=== PATIENT | female | born 1980 | race African-American/Black ===

== ENCOUNTER 2025-10-10 14:18 | Outpatient (AMB) | payer OTHER, SELFPAY ==
[2025-10-10 14:20] VITALS: BMI 22.9
--- NOTE | 2025-10-10 14:20 | A.PHYSOV ---
Vital Signs 10/10/25 14:20 Height 5 ft 2 in Weight 125 lb BMI 22.9 Intake Visit Reasons: F/U after injection 09/12/2025 Intake Note: Patient is a 45 year old female in office today for follow up after C7-T1 interlaminar epidural injection on 09/12/25. 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 The patient has a history of lumbar surgeries and failed low back syndrome, managed with repeated caudal epidural injections, the latest on April 25, 2025. The patient underwent a C7-T1 epidural injection on September 04, 2025. The patient experienced a pain exacerbation after overactivity post-neck injection, leading to an emergency room visit where muscle relaxers were administered. She received prescription for cyclobenzaprine which helps her a great deal. Right now she is feeling much better. Her lower back pain started to get worse. She has been managed with coil injections in the past. She would like to schedule another procedure. Lower back pain is rated 8/10. Pain is reported primarily with standing. Cervical spine MRI showed moderate left foraminal stenosis at C6-7 and mild to moderate bilateral neural foraminal stenosis at C5-6. The patient reports improvement after receiving cyclobenzaprine, which was effective in alleviating symptoms. Pain Description - Pain location: Lower back and lumbar region - Pain quality: Fluctuating intensity, exacerbated by overactivity - Relieving factors: Cyclobenzaprine administration Results - Imaging: Cervical spine MRI on February 06, 2025, showed moderate left foraminal stenosis at C6-7 and mild to moderate bilateral neural foraminal stenosis at C5-6 [facility] Medical History (Updated 10/10/25 @ 15:51 by Fuentes Moses DO) Cervical spinal stenosis Cervical radiculitis Spinal stenosis, lumbar region with neurogenic claudication Lumbar radiculitis Surgical History (Updated 10/06/25 @ 15:28 by Juliann Frazier MA) H/O tubal ligation History of appendectomy H/O unilateral oophorectomy History of cancer surgery History of back surgery Social History (Updated 10/10/25 @ 14:21 by Juliann Frazier MA) Household Members: Spouse Alcohol intake: current Alcohol intake frequency: holidays/special occasions only Patient Tobacco Use Status: Current everyday Tobacco user Substance Use Type: Marijuana Current occupational status: unemployed and disabled Review of Systems Narrative Review of Systems - Musculoskeletal: Reports chronic lower back pain and lumbar radiculitis, chronic neck pain and cervical radiculitis - Neurological: Denies new neurological deficits Denies change in bowel bladder habits, denies fever or chills, denies uncontrolled depression or suicidal ideation Physical Exam Exam Exam: Physical Exam Patient appears to be in no acute distress, appropriately conversant oriented. She was able to ambulates without antalgia. She was able to perform heel walk and toe walk. Normal cervical range of motion. Spurling maneuver was negative. Lhermitte's sign was negative. Lumbar extension was restricted. Dural tension signs were negative. SI provocative maneuvers were negative. Bilateral lumbar paraspinal tenderness and SI joint tenderness with palpation. Patient demonstrated no upper motor neuron signs. Neurological examination of upper and lower extremities was nonfocal. Vital Signs: BMI result Body Mass Index 22.9 Assessment & Plan Assessment & Plan (1) Lumbar radiculitis: Code(s): M54.16 - Radiculopathy, lumbar region Category: Medical (2) Cervical radiculitis: Code(s): M54.12 - Radiculopathy, cervical region Category: Medical (3) Cervical spinal stenosis: Code(s): M48.02 - Spinal stenosis, cervical region Category: Medical (4) Spinal stenosis, lumbar region with neurogenic claudication: Code(s): M48.062 - Spinal stenosis, lumbar region with neurogenic claudication Category: Medical Plan Pain Management - Affect: Pain impacts daily activities, leading to emergency room visit after overactivity - Analgesia: Cyclobenzaprine prescribed, effective in symptom relief - Adverse Effects: None reported from cyclobenzaprine - Activities of Daily Living: Pain interferes with household activities - Aberrant Drug Related Behaviors: None reported Plan Patient was informed and verbally consented to the use of an ambient scribe for clinic note documentation during this visit. 1. Chronic Lower Back Pain The patient will continue with pain management strategies, including the use of cyclobenzaprine for muscle relaxation. A caudal epidural injection is planned to be scheduled, as the last one was performed in April 2025. 2. Lumbar Radiculitis The patient will be monitored for any changes in symptoms and will continue with the current pain management regimen. 3. Patient will be provided with prescription for a heating pad to use at home as needed Discussion Notes I discussed with the patient the plan to continue cyclobenzaprine for muscle relaxation and the scheduling of a caudal epidural injection. We also talked about the importance of avoiding overactivity post-procedure to prevent exacerbation of symptoms. The patient was informed about the need for pre-certification for the procedure due to insurance requirements. Risks and benefits of the procedure were discussed with the patient. Potential alternative measures were also discussed. Patient understands that the procedure is completely elective. Potential side effects associated with injectable medications were discussed. All questions were answered to the patient's satisfaction. Patient Instructions - Continue taking cyclobenzaprine as prescribed, preferably at night. - Avoid overactivity, especially after procedures, to prevent exacerbation of symptoms. - Await scheduling call for the caudal epidural injection. - Contact the office if symptoms worsen or if there are any concerns. Orders: Referrals Physiatry Procedure Notification M54.16 - Radiculopathy, lumbar region Medications: New heating pads (Comfort-Heal Heating Pad) As directed 1 ea 0RF cyclobenzaprine 5 mg PO TID PRN 90 tabs 0RF muscle spasm M54.16 - Radiculopathy, lumbar region Coding Level of Care Code Tele Est Pt Level 4 (16084) Complex visit Add On G2211 Diagnoses Lumbar radiculitis M54.16 Cervical radiculitis M54.12 Cervical spinal stenosis M48.02 Spinal stenosis, lumbar region with neurogenic claudication M48.062
--- OUTSIDE RECORDS SUMMARY | 2025-10-10 18:10 | XMS_ITS | Encounter Summary ---
Author Organization [facility] Address [address] [place] [address] Encounters * CPT with Medical instED at [facility] on 2025-09-20 { reasonForRequest : Pt reporting having a spinal injection by her neck last Thursday>notes she has been feeling a lot of pain since>stiff, pain going down her arm , patientReports : Dizziness with positional change , denies :[ Worst Headache of life , New onset of vision loss , Sudden onset -unilateral weakness/gait disturbance , Fall with head strike and altered LOC , New onset of Slurred speech or difficulty finding words , Sudden Mental status changes , Head pain with fever chills and neck pain , Seizure activity , Head pain not relieved by medication greater than 8 hours , Head pain greater than 8 hours -unrelated to falls or injury , Head pain with nausea vomiting , Sensitive to light ], chiefComplaints : Neck Pain , pmh : Osteoarthritis, Fibromyalgia, Chronic Back Pain, Chronic Pain, Anxiety Disorder, Depression ,&quot ;allergies : No Known Drug Allergies , otherAllergies : , p ainAssessment : , visitOutcome : , additionalComments": 45 y.o female complains of Neck Pain\nPatient self referring\npatient had a cortisone inject ion last Thursday in her neck secondary chronic neck and shoulder pain. \nPatient states it was hurting at first but states pain has become increasingly worse. Patient feels she over did it this past week as she was instructed to not do any heavy lifting. She has been lifting up grandson who is 12 pounds, laundry, washing dishes and thinks she has aggravated the area. \nIbuprofen 800mg and Ice packs and warm showers- relief did not last long and pain is right back to the same level \nendorses headaches, that goes up the back of her neck, no vision changes.\ndenies any fever, some chills overnight. denies any nausea or vomiting. \ndenies any kidney issues and no blood thinners\nrequesting insted visit. \nI provided information on the mobile health provider response time and advised the patient and/or caregiver to monitor reported signs and symptoms. I discussed the warning signs of when to seek emergency care. } InstED visit for a female patient with complaint of neck pain following injection for arthritis andexertion. Pt reports history of osteoarthritis with periodic neck injections believed to be cortisone and most recently received injection 8 days ago. 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 Pain has been going on for 6 days and getting worse. Pt has been taking 800 mg ibuprofen q8h without improvement. Pt called pain management provider and was not able to be fit in to schedule and had been advised she may need ED. Pt presents in some obvious discomfort with obvious loss of ROM of neck and upper body. V/S taken as listed with hypertension noted. Neck palpated with obvious tenderness noted bilaterally in trapezius as well as muscles on the posterior of the neck beneath occiput. Consulted with [facility] who advised follow up with PCP and pain management in addition to applying heat, and topical lidocaine. Discussedwith pt urgent care vs ED for her concerns presently and pt decided on ED with plan to go by private vehicle. ORAL_MEDICATION, EKG, POC_BLOODWORK Written by Medical instED on 2025-09-20
--- OUTSIDE RECORDS SUMMARY | 2025-10-10 18:10 | XMS_ITS | Continuity of Care Document ---
Author Organization [employer] [facility], [facility] Address [address] [place] [address] Care Team Providers Care Interim Controller Name Role Phone HIM CCA OTHER Assessment No assessment recorded. Plan of Treatment Reminders Order Date Submit Date Provider Last Modified By Organization Details Last Modified Time Details Appointments None record ed. Lab None record ed. Referral None record ed. Procedures None record ed. Surgeries None record ed. Imaging None record ed. Medication Orders None record ed. Patient TargetsNo targets recorded. Patient InstructionsNo instructions recorded. Reason for Referral None Reported. Medical Equipment None Reported. Allergies Allergen ID Allergen Name Allergen Category Reaction Reaction Severity Criticality Documentation Date Start Date Code Code System Note Provider Name and Address Organization Details Recorded Time latex environme nt,medica tion Not available Not available Not available 09/20/20252016 52301 91 RxNorm unrec ogniz ed react ion (text : Rash/ Carter titis , code: 95482 8007) (from [facility]) Not Available [facility] - External Data Service - prod 13:33:05 Medications Name Sig Start Date Stop Date Status Note LastModified by Organization Details LastModified Time ibuprofen 800 mg tablet TAKE 1 BY MOUTH 3 TIMES A DAY NEEDED active Not Available Not Available No t Available metronidazo le 500 mg tablet TAKE 1 TABLET BY MOUTH EVERY 12 HOURS FOR 7 DAYS NO ALCOHOL, TAKE WITH FOOD FOR ABDOMINAL DISCOMFOR T 09/20 completed Not Available Not Available Not Available valacyclovi r 500 mg tablet TAKE 1 TABLET BY MOUTH 2 TIMES A DAY FOR 3 DAYS NEEDED FOR VAGINAL HERPES active Not Available Not Available No t Available omeprazole 20 mg capsule,del ayed release TAKE 1 CAPSULE BY MOUTH EVERY DAY active Not Available Not Available No t Available lorazepam 1 mg tablet TAKE 1 TAB, 1 HOUR PRIOR TO PROCDURE, MAY REPEAT X 1 active Not Available Not Available No t Available albuterol sulfate HFA 90 mcg/actuati on aerosol inhaler INHALE 2 PUFFS INTO THE LUNGS EVERY 6 HOURS NEEDED FOR COUGH OR WHEEZING. active Not Available Not Available No t Available loratadine 10 mg tablet TAKE 1 TABLET BY MOUTH EVERY DAY active Not Available Not Available No t Available duloxetine 60 mg capsule,del ayed release TAKE 1 CAPSULE BY MOUTH EVERY DAY active Not Available Not Available No t Available Flowflex COVID-19 Antigen Home Test kit DIRECTED active Not Available Not Available No t Available Vitals Date Recorded Body height Body weight Respiratory rate Oxygen saturation Heart rate Systolic And Diastolic Systolic And Diastolic Provider Name and Address Organization Details Last Updated DateTime 5 157.48 cm 01862 g 16 /min 100 % 64 /min 178/111 mm[Hg] 177/131 mm[Hg] Not Available [facility] - production 5 13:38:52 Social History None recorded. Functional Status None recorded. Mental Status None recorded. Family History Nothing Reported. Medical History No medical history recorded. Gynecological HistoryNo gynecological history recorded. Obstetrics History GPAL:G 0 P 0 0 0 0 Past Encounters Encounter ID Performer Location Encounter Start Date Encounter Closed Date Diagnosis/Indication Diagnosis SNOMED-CT Code Diagnosis ICD10 Code Diagnosis IMO Codes Diagnosis Note [id number] Isadora Hampton MD [facility] ED Medical [address] [address] 09/20/2025 13:32:43 09/20/2025 16:32:25 Neck pain [id number] M54.2 07570 Evaluation in the field was performed by my mine laborer colleague, as noted above, I provided real-time direction and supervisio n for this visit.This is a 45yo F PMHx chronic cervical radiculiti s s/p epidural spinal injection 8d ago, lumbago with L5/S1 radiculopa thy, tobacco use disorder who is p/w ongoing neck pain. Reports she picked up her grandson two days after ANGELA and neck and shoulders started hurting worse. No direct trauma, no numbness/t ingling, no fevers, no skin erythema. Taking ibuprofen 800 mg q8hr x weeks. No known hx kidney disease.Al so noted to have elevated BP iso pain 06/25, denies hx prior elevated BPs. VS: BP 171/111 b/l, rest wnlParamed ic exam: sig spasm of b/l trapezius, occipital spinal musclesPOC testing: none Impression : (1) neck pain 2/2 muscle spasm and (2) elevated BP w/o diagnosis HTNPlan: Pt elects ED eval as she feels she need emergent pain control, recommend full outpatient work up if elevated BPs persist including BMP in ED to r/o renal cause iso heavy NSAID use.Red flags reviewed, pt expressed understand ing For PCP: ensure adequate work up for elevated BP if remains elevated c/w essential HTN We discussed the diagnostic uncertaint y of home visits and the risk associated with this. In this case, the patient and I felt this to be an acceptable and reasonable amount of risk given the benefit of avoiding an ED visit. We discussed the need to seek care urgently/e mergently in the setting of any new or worsening serious symptoms, shortness of breath, cough, chest pain, fever. Health Concerns Section Related Observation LastModified by Organization Detai ls LastModified Time None Recorded Concern Status LastModified by Organization Details LastModified Time None Recorded Payers Encounter Date Sequence Insurance Name Policy Number Policy Delgado Covered Member ID Delgado Member ID Guarantor Name 09/20/2025 1 [facility] - DOS ON OR AFTER 2023 - DUAL ELIGIBLE - JAIL OPTIONS AND ONE CARE (MEDICARE REPLACEMENT/ADV ANTAGE - HMO) Joycelyn Flores [id number] Joycelyn Flores Notes Date Note Type Note Provider Name and Address Organization Details Recorded Time 09/20/2025 text/html CRC Nurse Triage Notes (Shirin Barnes): Reason For Request: Pt reporting having a spinal injection by her neck last Thursday>notes she has been feeling a lot of pain since>stiff, pain going down her arm Patient Reports: Dizziness with positional change Denies: Worst Headache of life New onset of vision loss Sudden onset -unilateral weakness/gait disturbance Fall with head strike and altered LOC New onset of Slurred speech or difficulty finding words Sudden Mental status changes Head pain with fever chills and neck pain Seizure activity Head pain not relieved by medication greater than 8 hours Head pain greater than 8 hours -unrelated to falls or injury Head pain with nausea vomiting Sensitive to light Chief Complaints: Neck Pain PMH: Osteoarthritis, Fibromyalgia, Chronic Back Pain, Chronic Pain, Anxiety Disorder, Depression PMH Reviewed at 09/20/2025 - Allergies Reviewed at 09/20/2025 - : Comments: 45 y.o female complains of Neck Pain Patient self referring patient had a cortisone injection last Thursday in her neck secondary chronic neck and shoulder pain. Patient states it was hurting at first but states pain has become increasingly worse. Patient feels she over did it this past week as she was instructed to not do any heavy lifting. She has been lifting up grandson who is 12 pounds, laundry, washing dishes and thinks she has aggravated the area. Ibuprofen 800mg and Ice packs and warm showers- relief did not last long and pain is right back to the same level endorses headaches, that goes up the back of her neck, no vision changes. denies any fever, some chills overnight. denies any nausea or vomiting. denies any kidney issues and no blood thinners requesting insted visit. I provided information on the mobile health provider response time and advised the patient and/or caregiver to monitor reported signs and symptoms. I discussed the warning signs of when to seek emergency care. .................... .................... .................... .................... .................... .................... .................... . Last Repairer Helper Note From Sharan Peralta: InstED visit for a female patient with complaint of neck pain following injection for arthritis and exertion. Pt reports history of osteoarthritis with periodic neck injections believed to be cortisone and most recently received injection 8 days ago. 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 Pain has been going on for 6 [...] of the neck beneath occiput. Consulted with [facility] who advised follow up with PCP and pain management in addition to applying heat, and topical lidocaine. Discussed with pt urgent care vs ED for her concerns presently and pt decided on ED with plan to go by private vehicle. .................... .................... .................... .................... .................... .................... .................... . [facility] Consulted: Isadora Hampton .................... .................... .................... .................... .................... .................... .................... . Disposition: Fulfilled Isadora Hampton MD [address], [place], [address], [employer] 09/20/2025 16:15:13 OBGyn Episode No OBEpisode recorded.
--- OUTSIDE RECORDS SUMMARY | 2025-10-10 18:10 | XMS_ITS | Continuity of Care Document ---
Author Name [facility], Medical Address [address] [place] [address] Organization Unknown Address [address] [place] [address] Medications No known medications Problems No known problems
--- OUTSIDE RECORDS SUMMARY | 2025-10-10 18:10 | XMS_ITS | Data Portability ---
Author Organization [facility], [facility] Address [address] [place] [address] Care Team Providers Care Washer And Capper Machine Operator Name Role Phone HIM CCA OTHER Assessment [...] Not available Not available Not available 09/20/20252016 93147 91 RxNorm unrec ogniz ed react ion (text : Rash/ Tom[place] titis , code: [id number] 8007) (from [facility]) Not Available [facility] - External Data Service - prod 13:33:05 [...] Details Last Updated DateTime 5 157.48 cm 31298 g 16 /min 100 % 64 /min [...] ICD10 Code Diagnosis IMO Codes Diagnosis Note [id number] Isadora Hampton MD [facility] ED Medical [address] [phone] 09/20/2025 13:32:43 09/20/2025 16:32:25 Neck pain [id number] M54.2 [id number] Evaluation in the field was performed by my insurance underwriter sales colleague, as noted above, I provided real-time [...] by Organization Details LastModified Time None Recorded Advance Directives Directive None Recorded Payers Insurance Date Sequence Insurance Name Policy Number Policy Delgado Covered Member ID Delgado Member ID Guarantor Name 09/20/2025 1 [facility] - DOS ON OR AFTER 2023 - DUAL ELIGIBLE - [employer] OPTIONS AND ONE CARE (MEDICARE REPLACEMENT/ADV ANTAGE - HMO) Joycelyn Flores [id number] Joycelyn Flores Notes Date Note Type Note [...] 09/20/2025 - Allergies Reviewed at 09/20/2025 - Comments: 45 y.o female complains of Neck [...] .................... .................... .................... .................... .................... .................... . Stationary Fireman Note From Sharan Peralta: Inst[facility] visit for a female patient with complaint of neck pain following injection for arthritis and exertion. Pt reports history of osteoarthritis with periodic neck injections believed to be cortisone and most recently received injection 8 days ago. 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 Pain has been going on for 6 [...] of the neck beneath occiput. Consulted with [facility] [place] [facility] who advised follow up with PCP and pain management in addition to applying heat, and topical lidocaine. Discussed with pt urgent care vs ED for her concerns presently and pt decided on ED with plan to go by private vehicle. .................... .................... .................... .................... .................... .................... .................... . [facility] Consulted: Isadora Hampton .................... .................... .................... .................... .................... .................... .................... . Disposition: Fulfilled Isadora Hampton MD [address], [place], [address], [employer] 09/20/2025 16:15:13 OBGyn Episode No OBEpisode recorded.
--- OUTSIDE RECORDS SUMMARY | 2025-10-10 18:10 | XMS_ITS | Clinical Summary ---
Author Organization [facility] Address [address] [place] [address] Phone Care Team Providers Care Home Aid Name Role Phone Peg Michaud MD Primary Care Provider [phone] Allergies Active Allergy Reactions Criticality Noted Date Comments Cheese GI intolerance Low 03/04/2017 Chocolate Headache Low 03/04/2017 Latex Rash Low 03/04/2017 Medications inhalational spacing device inhaler 1 Each by Does not apply route as needed for Other (with inhalers). 05/07/20 23 Active acetaminophen (TYLENOL) 500 mg tablet Take 1 tablet (500 mg total) by mouth every 6 (six) hours if needed. 10/29/20 22 Active fluticasone propion-salmete roL (ADVAIR HFA) 115-21 mcg/actuation inhaler Inhale 2 Puffs into the lungs 2 times daily for 180 days. TAKE 2 PUFFS TWICE PER DAY. RINSE MOUTH AFTER EACH ADMINISTRATION TO AVOID FUNGAL INFECTION DO TO USE OF INHALED STEROID. 05/07/20 23 Active fluticasone propionate (FLONASE) 50 mcg/actuation nasal spray 2 sprays in each nostril daily 09/24/20 20 Active meclizine (ANTIVERT) 25 mg tablet Take 1 Tablet by mouth 3 times daily as needed (dizziness) for up to 10 days. 04/21/20 24 Active sulindac (CLINORIL) 150 mg tablet Take 1 Tablet by mouth 2 times daily as needed for Pain (Take with food.). 03/30/20 23 Active valACYclovir (VALTREX) 500 mg tablet Take 500 mg by mouth 3 times daily as needed. Active loratadine (CLARITIN) 10 mg tablet TAKE 1 TABLET BY MOUTH EVERY DAY 90 tablet 1 12/15/19 25 Active Ventolin HFA 90 mcg/actuation inhaler INHALE 2 PUFFS INTO THE LUNGS EVERY 6 HOURS NEEDED FOR COUGH OR WHEEZING. 18 each 3 03/21/20 25 Active omeprazole (PriLOSEC) [address] capsule TAKE 1 CAPSULE BY MOUTH EVERY DAY 90 capsule 1 06/08/20 25 Active DULoxetine (CYMBALTA) [address] capsule TAKE 1 CAPSULE BY MOUTH EVERY DAY 90 capsule 1 06/09/20 25 Active nicotine polacrilex (COMMIT) 4 mg lozengeIndicati ons:smoking cessation Dissolve 1 lozenge (4 mg total) in the mouth every 2 (two) hours if needed for smoking cessation. 90 lozenge 3 09/27/20 25 Active losartan (Cozaar) 50 mg tabletIndicatio ns:Hypertension , unspecified type Take 1 tablet (50 mg total) by mouth 1 (one) time each day. 30 tablet 3 09/27/20 25 Active albuterol HFA (Ventolin HFA) 90 mcg/actuation inhalerIndicati ons:Moderate persistent asthma, unspecified whether complicated Inhale 2 puffs by mouth every 4 (four) hours if needed for wheezing or shortness of breath. 8 g 5 09/27/20 25 026 Active cyclobenzaprine (FLEXERIL) 5 mg tabletIndicatio ns:Neck pain Take 1 tablet (5 mg total) by mouth 3 (three) times a day if needed for muscle spasms for up to 5 days. 15 tablet 09/20/20 25 025 Active Problems Problem Noted Date Diagnosed Date De Quervain's disease (radial styloid tenosynovi tis) 11/30/2024 Overview (11/30/2024): neos, s/p surgery Depression with anxiety 11/30/2024 Overview (11/30/2024): Used to follow with [facility] Lumba 11/30/2024 Overview (11/30/2024): Follows with pain management, will receive epidural spinal injections, MR lumbar from 03/2014 moderate right paramedia disc herniation, and arthropathy of L5-S1. [facility] s/p decompression and microdiscectomy for right radiculopathy post surgery MRI 03/2015 no further evidence of nerve root compression. She continued with symptoms post surgery and was found not to be a candidate for further surgery Multilevel degenerative disc disease 11/30/2024 Overview (11/30/2024): L 5 - S 1, T 11-12. Evaluated by neurology (? Fibromyalgia) they referred to rheumatology Macrocytic anemia 11/24/2019 Overview (11/30/2024): Have ordered Folate and B12 on 11/24/2019. Keratoconjunctivitis sicca 01/28/2018 Overview (11/30/2024): Referred to oral surgery for oral biopsy. ? Sjogrens Drug use 03/20/2017 Overview (11/30/2024): Utox +ve MJ and opiates LGSIL on Pap smear of cervix 03/20/2017 Overview (11/30/2024): Q 1 year pap smear, most recent 12/2018 GERD (gastroesophageal reflux disease) 7 Hyperlipidemia 03/18/2017 Vitamin D deficiency 03/18/2017 Failed back syndrome 02/11/2017 Overview (11/30/2024): L5-S1 decompression and microdiscectomy 02/2015, s/p PT, MRI 03/2014 with no nerve root compression or significant stenosis, follows with chronic pain (s/p epidural injections) Evaluated for possible spinal stimulation. Asthma, mild intermittent 10/16/2016 Dry eyes 07/17/2016 Encounters Date Type Department Care Team Description 10/02/2025 Telephone Internal Medicine - [address] [place] [address] Peg Michaud MD 09/27/2025 10:30 AM EST Office Visit Internal Medicine [facility] [address] [facility] [address] [place] [phone] Fernando Gannon NP Hypertension, unspecified type (Primary Dx); Tobacco dependency; Moderate persistent asthma, unspecified whether complicated; Cervical pain; Shoulder pain, unspecified chronicity, unspecified laterality; Healthcare maintenance 09/20/2025 6:30 PM EST - 09/20/2025 9:49 PM EST Emergency [facility] Emergency [address] [place] [address] Lyle Gerard MD Neck pain (Primary Dx) Discharge Disposition: Home or Self Care 09/12/2025 7:46 AM EDT Anesthesia Event [facility] Pain Management [address] [place] [address] Ernie Hall MD Fox, Jillian AK 09/12/2025 7:35 AM EDT - 09/12/2025 11:59 PM EDT Hospital Encounter [facility] Xray [address] [place] [phone] Pain Discharge Disposition: Home or Self Care 09/12/2025 6:32 AM EDT - 09/12/2025 11:59 PM EDT Hospital Encounter [facility] Pain Management [address] [place] [phone] Fuentes Moses DO Chang, Ling, CRNA Radiculopathy, cervical region Discharge Disposition: Home or Self Care from Last 3 Months Immunizations Immunization Administration Dates Next Due Influenza Quadravalent, MDCK , 0.5ml, preservative free (Flucelvax) 6mo and older 09/04/2021,11/24/2019 Influenza trivalent, 0.5mL, preservative free (Fluarix; FluLaval; Fluzone) ages 6mo and older (Afluria) 3 years and older 09/27/2025,09/26/2015 Influenza trivalent, with pr eservative (Fluzone; Afluria) 6mo and older 03/13/2015 PPD Test 01/16/2017 Pneumococcal conjugate 13 va lent (Prevnar 13, PCV13) 2mo and older 07/17/2016 Pneumococcal polysaccharide 23 valent (Pneumovax 23) 2yo and older 03/13/2015 Tdap Tetanus diptheria acell ular pertussis (Boostrix; Adacel) 7yo and older 12/25/2015,11/26/2011 Surgical History Surgery Date Site/Laterality Comments BACK SURGERY 03/12/2015 Right PROCEDURE: HISTORICAL BACK SURGERY; COMMENT: Dr Mcfarlane.Micro discectomy,L5S1 decompress WRIST SURGERY Bilateral PROCEDURE: HISTORICAL WRIST SURGERY; COMMENT: tendinitis NEOS APPENDECTOMY PROCEDURE: HISTORICAL APPENDECTOMY OOPHORECTOMY Left PROCEDURE: HISTORICAL OOPHORECTOMY TUBAL LIGATION 08/12/2012 Right PROCEDURE: HISTORICAL TUBAL LIGATION OTHER SURGICAL HISTORY 07/2019 PROCEDURE: MN COLPOSCOPY CERVIX VAG ELTRD CONIZATION CERVIX OTHER SURGICAL HISTORY PROCEDURE: MN COLPOSCOPY CERVIX VAG ELTRD CONIZATION CERVIX; COMMENT: Dr. Aldo Cassidy Medical History Medical History Date Comments Asthma, mild intermittent 10/16/2016 DX:Ast hma, mild intermittent De Quervain's disease (radia l styloid tenosynovitis) DX:De Quervain's disease (ra dial styloid tenosynovitis); COMMENT: neos, s/p surgery Depression with anxiety DX:Depre ssion with anxiety; COMMENT: Used to follow with [facility] Drug use 03/20/2017 DX:Drug use; COM MENT: Utox +ve MJ and opiates Dry eyes 07/17/2016 DX:Dry eyes Failed back syndrome 02/11/2017 DX:Failed b ack syndrome; COMMENT: L5-S1 decompression and microdiscectomy 02/2015, s/p PT, MRI 03/2014 with no nerve root compression or significant stenosis, follows with chronic pain (s/p epidural injections) Evaluated for possible spinal stimulation. GERD (gastroesophageal reflux disease) 03/18/2017 DX:GERD (gastroesophageal reflux disease) Hypertriglyceridemia 03/18/2017 DX:Hypertri glyceridemia Hypothyroidism 07/17/2016 DX:Hypothyroidis m Inflammatory arthritis 06/04/2018 DX:Inflam matory arthritis Keratoconjunctivitis sicca 01/28/2018 DX:Ke ratoconjunctivitis sicca; COMMENT: Referred to oral surgery for oral biopsy. ? Sjogrens Lumbago DX:Lumbago; COMM ENT: Follows with pain management, will receive epidural spinal injections, MR lumbar from 03/2014 moderate right paramedia disc herniation, and arthropathy of L5-S1. [facility]/p decompression and microdiscectomy for right radiculopathy post surgery MRI 03/2015 no further evidence of nerve root compression. She continued with symptoms post surgery and w* Medical marijuana use 03/26/2018 DX:Medical marijuana use; COMMENT: Since 03/2017 for anxiety Multilevel degenerative disc disease DX:Multilevel degenerative disc disease; COMMENT: L 5 - S 1, T 11-12. Evaluated by neurology (? Fibromyalgia) they referred to rheumatology Tobacco use DX:Tobacco use Vitamin D deficiency 03/18/2017 DX:Vitamin D deficiency LGSIL on Pap smear of cervix 03/20/2017 DX: LGSIL on Pap smear of cervix; COMMENT: Q 1 year pap smear, most recent 12/2018 Cervical radiculopathy Family History Medical History Relation Name Comments Arthritis Aunt Other: joint pain Brother Other: joint pain Daughter 1 Other: joint pain Daughter 2 Liver cancer Maternal Grandfather Diabetes Maternal Grandmother asthma, dementia, HTN Other: sjogrens Mother sees Rheumat ology in [place] area Thyroid disease Mother fibromyalgia Arthritis Sister 1 h/o knee surger y Other: joint pain Son 1 Other: joint pain Son 2 Relation Name Status Comments Aunt Brother Alive Daughter 1 Alive Daughter 2 Alive Maternal Grandfather Maternal Grandmother Alive Mother Alive Sister 1 Alive Sister 2 Alive Son 1 Alive Son 2 Alive Social History Tobacco Use Types Packs/Day Years Used Date Smoking Tobacco: Every Day Cigarettes 0.3 30.9 Started: 11/16/1994 Smokeless Tobacco: Never Alcohol Use Standard Drinks/Week Comments Yes 2 (1 standard drink = 0.6 oz pur e alcohol) Interpersonal Safety Answer Date Record ed Physical Abuse Unrecognized value 03/07/2025 Have you ever been verbally abused? Not on file 03/07/2025 Comments No Sex and Gender Information Value Date Recorded Sex Assigned at Female 12/13/2024 8:19 AM EST Legal Sex Female 1:10 PM EST Gender Identity Female 12/13/2024 8:19 AM EST Sexual Orientation Straight 12/13/2024 8: 19 AM EST Obstetrics History Last Filed Vital Signs Vital Sign Reading Time Taken Comments Blood Pressure 158/82 09/27/2025 10:32 AM EST Pulse 70 09/27/2025 10:31 AM EST Temperature 36.4 C (97.6 F) 09/27/2025 10:31 AM EST Respiratory Rate 18 09/20/2025 9:22 PM EST Oxygen Saturation 98% 09/20/2025 9:22 PM EST Inhaled Oxygen Concentration - - Weight 56.7 kg (125 lb) 09/27/2025 10:31 AM EST Height 157.5 cm (5' 2 ) 09/27/2025 10:31 AM EST Body Mass Index 22.86 09/27/2025 10:31 AM EST Plan of Treatment Upcoming Encounters Date Type Department Care Team ([facility] st Contact Info) Description 10/25/2025 11:00 AM EST Office Visit Internal Medicine - [place] [address] [facility] [address] [place] [address] Fernando Gannon NP [address] [facility] [address] [place] [address] Health Maintenance Due Date Last Done Comments Breast Cancer Screening 1982 Hepatitis A Vaccines (1 of 2 - Risk 2-dose series) 2001 Hepatitis B Vaccines (1 of 3 - 19+ 3-dose series) 2001 HPV Vaccines (1 - 3-dose SCDM series) 2009 Cervical Cancer Screening: Pap Smear 06/11/2022 06/11/2021 HIV Screening 10/25/2022 Medicare Annual Wellness Visit 10/25/2022 Social Influencers of Health Screening 10/25/2022 COVID-19 Vaccine ( - season) 2025 12/26/2021, 11/28/2021 Hypertension/CHF/CAD Annual BMP Blood Test 09/27/2025 10/29/2022 DTaP,Tdap,and Td Vaccines (3 - Td or Tdap) 12/25/2025 12/25/2015, 11/26/2011 Cholesterol Screening (Lipid Panel) 10/29/2027 10/29/2022 Pneumococcal Vaccine: Pediatrics (0 to 5 Years) and At-Risk Patients (6 to 49 Years) (3 of 3 - PCV20 or PCV21) 2032 07/17/2016, 03/13/2015 RSV Immunization Adult Patients (1 - 1-dose 75+ series) 2057 Hepatitis C Screening Completed 06/01/2017 Depression Screening Completed 09/27/2025 Influenza Vaccine Completed 09/27/2025, , 11/24/2019, Additional history exists HIB Vaccines Aged Out No longer eligi ble based on patient's age to complete this topic IPV Vaccines Aged Out No longer eligi ble based on patient's age to complete this topic MMR Vaccines Aged Out No longer eligi ble based on patient's age to complete this topic Meningococcal ACWY Vaccine Aged Out N o longer eligible based on patient's age to complete this topic Meningococcal B Vaccine Aged Out No l onger eligible based on patient's age to complete this topic RSV Immunization Patients Under 20 months Aged Out No longer eligible based on patient's age to complete this topic Varicella Vaccines Aged Out No longer eligible based on patient's age to complete this topic Procedures Procedure Name Priority Date/Time Associated Diagnosis Comments OXYGEN THERAPY, ADULT Routine 09/12/2025 8:08 AM EDT ANNUAL BMP BLOOD TEST Routine 10/29/2022 LIPID PANEL Routine 10/29/2022 PAP SMEAR Routine 06/11/2021 HEPATITIS C SCREENING Routine 06/01/2017 from Last 3 Months or Most Recently Relevant to Health Maintenance Results * Annual BMP Blood Test (10/29/2022) Pathologist [facility] Annual BMP Blood Test abstracted us Historical Provider HEALTH MAINTENANCE Final Result * (ABNORMAL) Lipid panel (10/29/2022) [facility] LDL/HDL Ratio 4 0 - 4 Triglycerides 116 0 - 150 mg/dL Cholesterol 190 0 - 200 mg/dL HDL 53 >=40 mg/dL LDL Cholesterol 114(A) 0 - 100 mg/dL Blood Venous blood specimen / Unknown Historical Provider LAB BLOOD ORDERABLES Jazmine l Result * Pap Smear (06/11/2021) Pap smear no interpretation , abstracted Historical Provider HEALTH MAINTENANCE Final Result * Hepatitis C Screening (06/01/2017) Hepatitis C Screening abstracted Historical Provider HEALTH MAINTENANCE Final Result from Last 3 Months or Most Recently Relevant to Health Maintenance [place] [address] [place] [address] MEDICARE Member Subscriber Plan / Payer (Ef fective 2019-Present) Name:RHINA BENITEZ Relation to Subscriber:Self Name:Rhina Benitez Payer ID:[id number] Group ID:[id number] Type:Not on file Address: [place] [address] [address] Care Teams Home Aid Relationship Specialty Start Date End Date Peg Michaud MD [address] [place] [phone] PCP - General Internal Medicine 02/04/22
== END 2025-10-10 14:35 | disposition home or self-care (01) ==
LOC: HO.HPHYS 14:18
PROVIDERS: Visit Provider Physical Medicine & Rehabilitation
DX: M54.16 Radiculopathy, lumbar region (principal); M54.12 Radiculopathy, cervical region; M48.02 Spinal stenosis, cervical region; M48.062 Spinal stenosis, lumbar region with neurogenic claudication
CPT/HCPCS: 99214; G2211

== ENCOUNTER → 2025-10-10 14:18 | Outpatient (BNVA) | payer OTHER, SELFPAY | PROVIDERS: Visit Provider Physical Medicine & Rehabilitation | DX: M54.16 Radiculopathy, lumbar region (principal); M54.12 Radiculopathy, cervical region; M48.02 Spinal stenosis, cervical region; M48.062 Spinal stenosis, lumbar region with neurogenic claudication | CPT/HCPCS: 99212 ==

== ENCOUNTER 2025-10-30 09:55 | Day surgery (SDC) | payer OTHER, SELFPAY ==
[2025-10-26 09:42] VITALS: BMI 22.9
--- NOTE | 2025-10-26 10:14 | HO.ANESPROP2 ---
Documented by User: Sobeida Vallejo NP 10/26/25 10:14 HPI - Anesthesia Eval Consult details Narrative: 45yo F for Caudal Epidural Steroid Injection PMFSH Active Problems Active Problems: All Active Problems Spinal stenosis, lumbar region with neurogenic claudication (Acute) Cervical spinal stenosis (Acute) Cervical radiculitis (Acute) Lumbar radiculitis (Acute) Past Medical History Medical History Fibromyalgia HTN (hypertension) Macrocytic anemia Depression with anxiety Hyperlipidemia Multilevel degenerative disc disease GERD (gastroesophageal reflux disease) Asthma, mild intermittent Failed back syndrome of lumbar spine Cervical spinal stenosis Cervical radiculitis Spinal stenosis, lumbar region with neurogenic claudication Lumbar radiculitis Surgical History Surgical History H/O tubal ligation History of appendectomy H/O unilateral oophorectomy History of cancer surgery History of back surgery Social History Social History Household Members: Spouse Alcohol intake: current Alcohol intake frequency: holidays/special occasions only Patient Tobacco Use Status: Current everyday Tobacco user Tobacco use type: Cigarette Cigarettes Per Day: 5 Years Smoked: 30 Substance Use Type: Marijuana Advance Directives: No Advance Directives Information Provided: Yes Current occupational status: unemployed and disabled Meds Allergies Allergy/AdvReac Type Severity Reaction Status Date / Time cheese Allergy Intermediate Gastrointestinal Verified 10/26/25 09:50 Upset chocolate Allergy Intermediate Headache Verified 10/26/25 09:50 latex Allergy Intermediate Rash Verified 10/26/25 09:50 Home Medications ?Medication ?Instructions ?Recorded ?Confirmed ?Last Taken ?Type albuterol sulfate 90 mcg/actuation 2 puff inhalation Q6H PRN 10/06/25 10/26/25 Unknown History aerosol inhaler Shortness Of Breath Or Wheezing ibuprofen 800 mg tablet 800 mg PO TID PRN 10/06/25 Unknown History losartan 50 mg tablet 50 mg PO DAILY 10/06/25 10/26/25 Unknown History duloxetine 60 mg capsule,delayed 60 mg PO DAILY 10/26/25 10/26/25 Unknown History release fluticasone propionate 115 2 puff inhalation BID 10/26/25 10/26/25 Unknown History mcg-salmeterol 21 mcg/actuation HFA inhaler (Advair HFA) fluticasone propionate 50 1 spray intranasal DAILY 10/26/25 10/26/25 Unknown History mcg/actuation nasal spray,suspension loratadine 10 mg tablet 10 mg PO DAILY 10/26/25 10/26/25 Unknown History omeprazole 20 mg capsule,delayed 20 mg PO DAILY 10/26/25 10/26/25 Unknown History release Exam Height,Weight and Vital Signs: Height 5 ft 2 in Weight 56.699 kg Assessment and Plan Assessment Anesthesia Assessment: Chart Reviewed Documented by User: Stephanie Reagan MD 10/30/25 10:52 PMFSH Past Medical History Medical History Fibromyalgia HTN (hypertension) Macrocytic anemia Depression with anxiety Hyperlipidemia Multilevel degenerative disc disease GERD (gastroesophageal reflux disease) Asthma, mild intermittent Failed back syndrome of lumbar spine Cervical spinal stenosis Cervical radiculitis Spinal stenosis, lumbar region with neurogenic claudication Lumbar radiculitis Family History Family history of problems with anesthesia: No Surgical History Surgical History H/O tubal ligation History of appendectomy H/O unilateral oophorectomy History of cancer surgery History of back surgery History of Problems with Anesthesia: No Social History Social History Household Members: Spouse Alcohol intake: current Alcohol intake frequency: holidays/special occasions only Patient Tobacco Use Status: Current everyday Tobacco user Tobacco use type: Cigarette Cigarettes Per Day: 5 Years Smoked: 30 Substance Use Type: Marijuana Advance Directives: No Advance Directives Information Provided: Yes Current occupational status: unemployed and disabled Meds Allergies Allergy/AdvReac Type Severity Reaction Status Date / Time cheese Allergy Intermediate Gastrointestinal Verified 10/26/25 09:50 Upset chocolate Allergy Intermediate Headache Verified 10/26/25 09:50 latex Allergy Intermediate Rash Verified 10/26/25 09:50 Home Medications ?Medication ?Instructions ?Recorded ?Confirmed ?Last Taken ?Type albuterol sulfate 90 mcg/actuation 2 puff inhalation Q6H PRN 10/06/25 10/26/25 Unknown History aerosol inhaler Shortness Of Breath Or Wheezing ibuprofen 800 mg tablet 800 mg PO TID PRN 10/06/25 Unknown History losartan 50 mg tablet 50 mg PO DAILY 10/06/25 10/26/25 Unknown History duloxetine 60 mg capsule,delayed 60 mg PO DAILY 10/26/25 10/26/25 Unknown History release fluticasone propionate 115 2 puff inhalation BID 10/26/25 10/26/25 Unknown History mcg-salmeterol 21 mcg/actuation HFA inhaler (Advair HFA) fluticasone propionate 50 1 spray intranasal DAILY 10/26/25 10/26/25 Unknown History mcg/actuation nasal spray,suspension loratadine 10 mg tablet 10 mg PO DAILY 10/26/25 10/26/25 Unknown History omeprazole 20 mg capsule,delayed 20 mg PO DAILY 10/26/25 10/26/25 Unknown History release Exam Airway Mallampati Class: II TM Dist: >3cm Neck ROM: Full Heart: rrr Lungs: cta Assessment and Plan Assessment Anesthesia Assessment: Anesthesia Plan Discussed Final Anesthetic Review Family History of Problems with Anesthesia: No History of Problems with Anesthesia: No NPO: Yes ASA Class: III Final Preanesthetic Review: No Changes in Pt Med Stat, Meds/Allgs Chart Reviewed, Consent Obtained/Reviewed and Anes Risks/Benef Reviewed Patient Risk: Intermediate Procedure Risk: Low Anesthetic Plan Anesthetic Plan: MAC: Disposition: Standard PACU
--- NOTE | ~2025-10-30 | FL_ITS ---
EXAMINATION: FL GUIDANCE ONLY HISTORY: Procedural guidance COMPARISON: None available. TECHNIQUE: Fluoroscopy time: 14 seconds. Cumulative Dose: 4.40 mGy. DAP: 189.21 uGym2 Images: 3. FINDINGS: Fluoroscopic spot films of the sacrum demonstrate a needle and contrast material in place at the sacral tip. FL/FL guidance in OR IMPRESSION: Fluoroscopy during procedure. Please see procedure report for additional information. Electronically signed by: Mina Lawson MD 10/31/2025 07:17 AM CALEB
[2025-10-30 10:52] VITALS: BMI 24.1
[2025-10-30 11:13] VITALS: BP 128/65; PULSE 68; RESP 15; TEMP 36.6; O2SAT 98
[2025-10-30] MEDS: Lactated Ringers 1,000 ML 100 ML IVCONT (11:15)
--- NOTE | 2025-10-30 11:24 | MHC.SHP ---
Pre-Procedural Eval Section A - 24 Hr Update-Section A only Date of Service: 10/30/25 The patient is an INPATIENT: No The patient has been examined within 24 hours of the surgical procedure. The History & Physical has been completed within 30 days and I have reviewed it.: Yes Section B - Complete if H&P > 30 days Chief Complaint: Radiculopathy, lumbar region Details of Present Illness: Chronic lower back pain Relevant Family History (Specify if Yes): No Relevant Social History: None Present Medications: see Short Stay Collaborative assessment Medical History: No relevant PMH History of Previous Operations: No relevant previous surgery Allergies: Allergies Allergy/AdvReac Type Severity Reaction Status Date / Time cheese Allergy Intermediate Gastrointestinal Verified 10/26/25 09:50 Upset chocolate Allergy Intermediate Headache Verified 10/26/25 09:50 latex Allergy Intermediate Rash Verified 10/26/25 09:50 Review of Systems Sugical H&P ROS: Negative: Constitution, Cardiovascular, Respiratory, Neurological, Psychiatric, Hem-Onc, Allergic/Immunologic, Gastrointestinal, Genitourinary, Musculoskeletal, Integumentary, Endocrine and Eyes/Ears/Nose/Throat Exam Surgical H&P Exam: Normal: HEENT, Normal: Heart, Normal: Lungs, Normal: Extremities, Normal: Abdomen, Normal: Skin and Normal: Neurological Plan Diagnosis/Plan: Unchanged I have reviewed the history and physical and performed a pertinent physical examination on my patient. No changes have occurred unless specified. Time Spent With Patient Time: Total time managing care of this patient today ____ minutes.
--- NOTE | 2025-10-30 11:25 | W.PM.OPN ---
Operative Note Operative Note Date of Service: 10/30/25 Narrative: Procedure performed: Caudal Epidual Injection under fluoroscopic guidance Pre-op diagnosis: Lumbar radiculitis Postop diagnosis: The same Anesthesia: Mac After informed consent was obtained patient was brought into the procedure room and placed in the prone position on the procedure table. Skin over sacral area was prepped and draped in usual sterile manner. Sacral hiatus was visualized utilizing fluoroscopy. 3.5 in 22 gauge spinal needle was introduced percutaneously and advanced into the spinal canal via sacral hiatus. Needle placement was verified utilizing 3 cc of Omnipaque contrast solution. Total volume of 10 cc containing 3 cc of 1% lidocaine, 40 mg of triamcinolone, normal saline solution was injected after negative aspiration for blood and cerebrospinal fluid. Radiation exposure was recorded and documented in the chart.
[2025-10-30 11:49] VITALS: BP 133/66; PULSE 57; RESP 16; TEMP 36.1; O2SAT 98
[2025-10-30 12:05] VITALS: BP 134/63; PULSE 57; RESP 16; TEMP 36.1; O2SAT 98
[2025-10-30 12:15] VITALS: BP 134/63; PULSE 71; RESP 16; TEMP 36.6; O2SAT 100
== END 2025-10-30 12:39 | disposition home or self-care (01) ==
PROVIDERS: PCP Internal Medicine; Visit Provider Physical Medicine & Rehabilitation
PROC: 3E0R3GC Introduction of Other Therapeutic Substance into Spinal Canal, Percutaneous Approach (ICD-10-PCS; CPT 62322; principal; 2025-10-30 11:40)
DX: M54.16 Radiculopathy, lumbar region (principal); G89.29 Other chronic pain; M54.50 Low back pain, unspecified; M48.062 Spinal stenosis, lumbar region with neurogenic claudication; Z91.040 Latex allergy status; Z98.890 Other specified postprocedural states; F17.210 Nicotine dependence, cigarettes, uncomplicated; Z56.0 Unemployment, unspecified
CPT/HCPCS: 62323; J2003; J2250; J3010; J3301; Q9967

== ENCOUNTER → 2025-10-30 09:55 | Outpatient (BNV) | payer OTHER, SELFPAY | PROVIDERS: PCP Internal Medicine; Visit Provider Physical Medicine & Rehabilitation | DX: M54.16 Radiculopathy, lumbar region (principal) | CPT/HCPCS: 62323 ==